=== PATIENT | male | born 1930 | race Caucasian/White ===

== ENCOUNTER 2016-07-06 08:42 | Day surgery (SDC) | payer MEDICARE ==
[~2016-07-06 08:42] MED LIST: EPINEPHRINE 1:1000 1 ML AMP ONE; Lactated Ringers 1,000 ML IV ONE; Marcaine 0.5% SDV 10 ML ONE; XYLOCAINE 1%/Epi 1:100000 MDV 20 ML ONE
[2016-07-06 09:15] VITALS: BP 117/72; PULSE 125; O2SAT 92
[2016-07-06] MEDS ORDERED: Phenergan 25 MG INJ IM ONE (09:30)
== END 2016-07-06 09:50 ==
LOC: SDC 08:42
PROVIDERS: ATTEND Orthopaedic Surgery
DX: Z53.8 Procedure and treatment not carried out for other reasons (principal); R11.2 Nausea with vomiting, unspecified
CPT/HCPCS: 96372; J0171; J2550